=== PATIENT | female | born 1995 | race Caucasian/White ===

== ENCOUNTER 2021-12-03 22:06 | Emergency (ER) | payer SELFPAY ==
[~2021-12-03] VITALS: Ht 162.6 cm; Wt 145.5 kg
[2021-12-03 22:11] VITALS: TEMP 98
[2021-12-03 23:47] LABS: CLOSTRIDIUM DIFF A/B NEG; CLOSTRIDIUM DIFF A/B INTERP No C.diff present
[2021-12-03 23:58] VITALS: BP 124/78; PULSE 76
== END 2021-12-03 23:59 | disposition home or self-care (01) ==
LOC: COL.ER 22:06
PROVIDERS: Nurse Practitioner
DX: R19.7 Diarrhea, unspecified (principal)

== ENCOUNTER 2022-01-27 09:23 | Emergency (ER) | payer SELFPAY ==
[~2022-01-27] VITALS: Ht 162.6 cm; Wt 140.5 kg
[2022-01-27] MEDS ORDERED: PRINIVIL5 MG PO (09:36)
[2022-01-27 09:37] VITALS: TEMP 97.2
[2022-01-27 10:32] LABS: BASO # 0.1 K/mm3 (0.0-0.2); BASO % 0.9 % (0.0-2.0); EOS % 0.5 % (0.0-4.0); GRAN # 4.8 K/mm3 (1.4-6.5); GRAN % 59.3 % (42.2-75.2); HEMATOCRIT 42.8 % (37.0-47.0); HEMOGLOBIN 14.4 g/dl (12.5-16.0); LYMPH # 2.5 K/mm3 (1.2-3.4); LYMPH % 31.1 % (20.0-51.0); MEAN CELL VOLUME 86 fl (80.0-100.0); MEAN CORPUSCULAR HEMOGLOBIN 29 pg (27-31); MEAN CORPUSCULAR HGB CONC 34 g/dl (33.0-37.0); MEAN PLATELET VOLUME 9.5 fl (7.4-10.4); MONO # 0.7 K/mm3 (0.1-0.6); PLATELET COUNT 339 K/mm3 (130-400); REDCELL DISTRIBUTION WIDTH-CV 12.5 % (11.5-14.5)
[2022-01-27 11:07] LABS: ALANINE AMINOTRANSFERASE 14 U/L (0-55); ALKALINE PHOSPHATASE 42 U/L (40-150); ANION GAP 13 mmol/L (7-16); AST,SGOT 14 U/L (5-34); BILIRUBIN,TOTAL 0.4 mg/dL (0.2-1.2); BLOOD UREA NITROGEN 10 mg/dL (7-19); CALCIUM 9.4 mg/dL (8.4-10.2); CARBON DIOXIDE 23 mmol/L (22-29); CHLORIDE 105 mmol/L (98-107); CREATININE, serum 0.76 mg/dL (0.57-1.11); GLUCOSE 92 mg/dL (70-99); POTASSIUM 4.2 mmol/L (3.5-4.5); SODIUM 141 mmol/L (136-145); TOTAL PROTEIN 7.6 gm/dL (6.2-8.1)
[2022-01-27 11:14] LABS: TROPONIN-I < 0.010 ng/mL (0.00-0.033)
[2022-01-27] MEDS ORDERED: PRINIVIL10 MG PO (13:15)
[2022-01-27 13:25] VITALS: BP 124/76; PULSE 72
== END 2022-01-27 13:37 | disposition home or self-care (01) ==
LOC: COL.ER 09:23
PROVIDERS: Personal Emergency Response Attendant
DX: I10 Essential (primary) hypertension (principal); E66.9 Obesity, unspecified

== ENCOUNTER 2022-03-25 08:59 | Emergency (ER) | payer SELFPAY ==
[~2022-03-25] VITALS: Ht 162.6 cm; Wt 136.4 kg
[~2022-03-25 08:59] MED LIST: PRINIVIL10 MG PO; PRINIVIL5 MG PO
[2022-03-25 09:11] VITALS: BP 132/86
[2022-03-25 10:18] VITALS: PULSE 84; TEMP 98.6
== END 2022-03-25 10:30 | disposition home or self-care (01) ==
LOC: COL.ER 08:59
DX: H60.91 Unspecified otitis externa, right ear (principal); Z88.1 Allergy status to other antibiotic agents

== ENCOUNTER 2022-05-02 13:09 | Emergency (ER) | payer SELFPAY ==
[~2022-05-02] VITALS: Ht 162.6 cm; Wt 131.8 kg
[2022-05-02 13:53] VITALS: TEMP 98.3
[2022-05-02 16:05] VITALS: BP 126/87; PULSE 89
== END 2022-05-02 16:05 | disposition home or self-care (01) ==
LOC: COL.ER 13:09
DX: R04.0 Epistaxis (principal); J32.9 Chronic sinusitis, unspecified; M79.2 Neuralgia and neuritis, unspecified; Z86.16 Personal history of COVID-19